=== PATIENT | male | born 1950 | race Caucasian/White ===

== ENCOUNTER → 2019-11-07 | Outpatient (CLI) | payer MEDICARE ==
[~2019-11-07] MED LIST: PLAVIX75 MG PO; SIMVASTATIN40 MG PO; ZYLOPRIM300 MG PO
--- NOTE | 2019-11-07 15:44 | Diagnostic Imaging Report ---
EXAMINATION: SP LUMBAR, COMPLETE MIN 4VW, HIP RIGHT 2-3 VW (+/- PELVIS) INDICATION: Back pain, right hip pain COMPARISON: None FINDINGS: Lumbar spine: AP, lateral and oblique images of the lumbar spine were obtained. No acute fracture. Vertebral body heights are maintained. Alignment is anatomic. Mild multilevel degenerative changes with disc space narrowing and osteophyte formation. Oblique images demonstrate no evidence of spondylolysis. Atherosclerotic arterial calcifications. Right hip: AP and frog-leg projections of the right hip were obtained. No acute fracture or dislocation. Alignment is anatomic. Mild right hip joint degenerative changes. Scattered atherosclerotic arterial calcifications. IMPRESSION: No acute osseous injury. 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 Signed by: Sonal Herman MD on 11/07/2019 3:40 PM
== END ==
LOC: RAD 13:39
DX: M25.551 Pain in right hip (principal); M54.5 Low back pain
CPT/HCPCS: 72110

== ENCOUNTER → 2020-07-10 | Day surgery (SDC) | payer MEDICARE ==
[2020-07-07 08:34] LABS: BASOPHILS # (AUTO) 0.1 (0.0-0.1); BASOPHILS % 0.9 % (0.0-1.0); EOSINOPHILS # (AUTO) 0.3 (0.0-0.4); EOSINOPHILS % 3.5 % (0.0-6.0); HEMATOCRIT 44.2 % (38.2-49.6); HEMOGLOBIN 14.5 g/dL (14.0-18.0); LYMPHOCYTES # (AUTO) 2.7 (1.0-3.2); MEAN CORPUSCULAR HEMOGLOBIN 29.8 pg (28-32); MEAN CORPUSCULAR HGB CONC 32.8 g/dL (31-35); MEAN CORPUSCULAR VOLUME 90.8 fL (81-99); MONOCYTES # (AUTO) 0.9 (0.2-0.8); MONOCYTES % 11.1 % (4.4-11.3); NEUTROPHILS # (AUTO) 3.8 (2.1-6.9); PLATELET COUNT 223 x10e3/uL (140-360); RED BLOOD COUNT 4.87 x10e6/uL (4.3-5.7); RED CELL DISTRIBUTION WIDTH 13.8 % (11.7-14.4)
[~2020-07-10] MED LIST changes: +FENTANYL CITRATE/PF 100MCG/2 ML INJ ONE; +GLUCAGON FOR INJ 1 MG VIAL ONE; +HYDROXYCHLOROQ200 MG PO; +HYOSCYAMINE SULFATE 0.5 MG/ML INJ ONE; +LIDOCAINE HCL 2% LOCAL INJ 5 ML SDV VIAL INJ ONE; +LOSARTAN POTASS25 MG PO; +MIDAZOLAM HCL 2 MG/2 ML VIAL ONE; +PROPOFOL IV EMULSION 10 MG/ML 20 ML VIAL ONE
[2020-07-10 16:30] VITALS: BP 126/82
== END | disposition home or self-care (01) ==
LOC: OR 12:01
PROVIDERS: ATTEND Internal Medicine Gastroenterology
DX: Z12.11 Encounter for screening for malignant neoplasm of colon (principal); D12.2 Benign neoplasm of ascending colon; D12.3 Benign neoplasm of transverse colon; D12.4 Benign neoplasm of descending colon; D12.5 Benign neoplasm of sigmoid colon; K64.8 Other hemorrhoids; I25.10 Atherosclerotic heart disease of native coronary artery without angina pectoris; I10 Essential (primary) hypertension; M10.9 Gout, unspecified; Z01.810 Encounter for preprocedural cardiovascular examination; Z01.812 Encounter for preprocedural laboratory examination; Z20.822 Contact with and (suspected) exposure to COVID-19; Z79.02 Long term (current) use of antithrombotics/antiplatelets
CPT/HCPCS: 36415; 45380; 45384; 45385; 85025; 93005; J1610; J1980; J2001; J2250; J2704; J3010; U0002; 45378

== ENCOUNTER → 2020-08-27 | Day surgery (SDC) | payer MEDICARE ==
[2020-08-24 13:11] LABS: BASOPHILS # (AUTO) 0.1 (0.0-0.1); BASOPHILS % 0.7 % (0.0-1.0); EOSINOPHILS # (AUTO) 0.2 (0.0-0.4); EOSINOPHILS % 2.9 % (0.0-6.0); HEMATOCRIT 44.3 % (38.2-49.6); HEMOGLOBIN 14.6 g/dL (14.0-18.0); LYMPHOCYTES # (AUTO) 2.6 (1.0-3.2); LYMPHOCYTES % 31.8 % (18.0-39.1); MEAN CORPUSCULAR HEMOGLOBIN 29.9 pg (28-32); MEAN CORPUSCULAR VOLUME 90.6 fL (81-99); MONOCYTES # (AUTO) 0.9 (0.2-0.8); MONOCYTES % 11.3 % (4.4-11.3); NEUTROPHILS # (AUTO) 4.3 (2.1-6.9); NEUTROPHILS % 52.8 % (38.7-80.0); PLATELET COUNT 230 x10e3/uL (140-360); RED BLOOD COUNT 4.89 x10e6/uL (4.3-5.7); RED CELL DISTRIBUTION WIDTH 14.5 % (11.7-14.4)
[~2020-08-27] MED LIST changes: -FENTANYL CITRATE/PF 100MCG/2 ML INJ ONE; -GLUCAGON FOR INJ 1 MG VIAL ONE; -HYOSCYAMINE SULFATE 0.5 MG/ML INJ ONE; -LIDOCAINE HCL 2% LOCAL INJ 5 ML SDV VIAL INJ ONE; -MIDAZOLAM HCL 2 MG/2 ML VIAL ONE
[2020-08-27 15:00] VITALS: BP 137/80
== END | disposition home or self-care (01) ==
LOC: OR 10:27
PROVIDERS: ATTEND Internal Medicine Gastroenterology
DX: Z12.11 Encounter for screening for malignant neoplasm of colon (principal); D12.3 Benign neoplasm of transverse colon; D12.2 Benign neoplasm of ascending colon; K62.1 Rectal polyp; K64.8 Other hemorrhoids; I25.10 Atherosclerotic heart disease of native coronary artery without angina pectoris; I10 Essential (primary) hypertension; M10.9 Gout, unspecified; Z01.812 Encounter for preprocedural laboratory examination; Z20.822 Contact with and (suspected) exposure to COVID-19; Z79.02 Long term (current) use of antithrombotics/antiplatelets
CPT/HCPCS: 36415; 45380; 45385; 85025; J2704; U0002; 45378; 45384

== ENCOUNTER 2021-07-03 09:39 | Inpatient (IN) | payer MEDICARE ==
[~2021-07-03] VITALS: Ht 175.3 cm; Wt 90.9 kg
[~2021-07-03 09:39] MED LIST changes: -PROPOFOL IV EMULSION 10 MG/ML 20 ML VIAL ONE
[2021-07-03 10:06] LABS: BASOPHILS # (AUTO) 0.1 (0.0-0.1); BASOPHILS % 0.9 % (0.0-1.0); EOSINOPHILS # (AUTO) 0.4 (0.0-0.4); EOSINOPHILS % 4.3 % (0.0-6.0); HEMATOCRIT 43.3 % (38.2-49.6); HEMOGLOBIN 13.9 g/dL (14.0-18.0); LYMPHOCYTES # (AUTO) 3.3 (1.0-3.2); LYMPHOCYTES % 37.6 % (18.0-39.1); MEAN CORPUSCULAR HEMOGLOBIN 30.2 pg (28-32); MEAN CORPUSCULAR HGB CONC 32.1 g/dL (31-35); MEAN CORPUSCULAR VOLUME 94.1 fL (81-99); MONOCYTES # (AUTO) 0.8 (0.2-0.8); MONOCYTES % 9.6 % (4.4-11.3); NEUTROPHILS # (AUTO) 4.1 (2.1-6.9); PLATELET COUNT 250 x10e3/uL (140-360); RED CELL DISTRIBUTION WIDTH 13.5 % (11.7-14.4)
[2021-07-03] MEDS ORDERED: ASPIRIN 81 MG CHEW TAB PO ONE (10:15)
[2021-07-03] MEDS: NITROGLYCERIN 0.4 MG SUBL SL PRN ×2 (10:21→10:27)
[2021-07-03 10:28] LABS: ALBUMIN 3.6 g/dL (3.5-5.0); ALBUMIN/GLOBULIN RATIO 1.1 (0.8-2.0); ANION GAP 12.8 mmol/L (8-16); CALCIUM 9.1 mg/dL (8.4-10.2); CREATININE, SERUM 1.63 mg/dL (0.72-1.25); POTASSIUM 3.8 mmol/L (3.5-5.1)
[2021-07-03] MEDS ORDERED: LACTATED RINGER'S 1,000 ML INJ ONE (11:30)
[2021-07-03] MEDS ORDERED: SODIUM CHLORIDE 0.9% 50ML 0 ML ONE (12:02)
[2021-07-03] MEDS ORDERED: IOPAMIDOL 370 MG/ML 200 ML INFUS..BTL INJ ONE ×2 (12:02→15:19)
[2021-07-03] MEDS ORDERED: ONDANSETRON HCL INJ 2MG/ML 2ML 2 MG/ML VIAL IV PRN (13:00)
[2021-07-03] MEDS ORDERED: Morphine 4mg Syringe 4 MG/ML INJ IV PRN (13:00)
[2021-07-03 14:45] VITALS: BP 118/79
[2021-07-03 15:00] VITALS: BP 118/79
[2021-07-03] MEDS ORDERED: SODIUM CHLORIDE 0.9% 50ML 50 ML ONE (15:19)
[2021-07-03 20:26] VITALS: BP 124/73
[2021-07-03] MEDS: HYDROXYCHLOROQUINE SULFATE 200 MG TAB PO SCH (21:47)
[2021-07-03] MEDS: ALLOPURINOL 300 MG TAB PO SCH (21:47)
[2021-07-03 21:52] VITALS: BP 124/73
[2021-07-03 23:47] VITALS: BP 137/71
[2021-07-04 05:30] VITALS: BP 148/64
[2021-07-04 07:01] LABS: BASOPHILS # (AUTO) 0.1 (0.0-0.1); BASOPHILS % 0.8 % (0.0-1.0); EOSINOPHILS # (AUTO) 0.3 (0.0-0.4); EOSINOPHILS % 3.7 % (0.0-6.0); HEMATOCRIT 42.5 % (38.2-49.6); HEMOGLOBIN 13.5 g/dL (14.0-18.0); LYMPHOCYTES # (AUTO) 2.2 (1.0-3.2); LYMPHOCYTES % 24.9 % (18.0-39.1); MEAN CORPUSCULAR HEMOGLOBIN 29.9 pg (28-32); MEAN CORPUSCULAR HGB CONC 31.8 g/dL (31-35); MONOCYTES % 11.3 % (4.4-11.3); NEUTROPHILS # (AUTO) 5.2 (2.1-6.9); NEUTROPHILS % 58.7 % (38.7-80.0); PLATELET COUNT 216 x10e3/uL (140-360); RED BLOOD COUNT 4.52 x10e6/uL (4.3-5.7); RED CELL DISTRIBUTION WIDTH 13.6 % (11.7-14.4)
[2021-07-04 07:22] LABS: ANION GAP 12.4 mmol/L (8-16); CALCIUM 9.2 mg/dL (8.4-10.2); CREATININE, SERUM 1.31 mg/dL (0.72-1.25); POTASSIUM 4.4 mmol/L (3.5-5.1)
[2021-07-04 07:43] LABS: INR 1.11; PROTHROMBIN TIME 15.1 seconds (11.9-14.5)
[2021-07-04 07:45] LABS: CREATINE KINASE MB 0.9 ng/mL (0-5.0)
[2021-07-04 07:48] VITALS: BP 134/79
[2021-07-04 07:55] VITALS: BP 134/79
[2021-07-04] MEDS: HYDROXYCHLOROQUINE SULFATE 200 MG TAB PO SCH ×2 (08:28→16:54)
[2021-07-04] MEDS: ALLOPURINOL 300 MG TAB PO SCH (08:29)
[2021-07-04 11:18] VITALS: BP 130/80
[2021-07-04 20:00] VITALS: BP 128/57
[2021-07-04 20:41] VITALS: BP 128/57
[2021-07-05] VITALS: BP 152/74
[2021-07-05 04:00] VITALS: BP 142/66
[2021-07-05 08:00] VITALS: BP 155/59
[2021-07-05] MEDS: ALLOPURINOL 300 MG TAB PO SCH (08:54)
[2021-07-05] MEDS: HYDROXYCHLOROQUINE SULFATE 200 MG TAB PO SCH (08:54)
[2021-07-05 11:45] VITALS: BP 157/77
[2021-07-05] MEDS ORDERED: ONDANSETRON HCL 4 MG ORAL DISINTEGRATING TAB PO PRN (12:30)
== END 2021-07-05 13:30 | disposition home or self-care (01) | DRG 182 ==
LOC: ER 09:54 → ERHOLD 12:59 → MED/SURG 14:36 → OBSVTOIN 07-05 10:09
DX: C34.11 Malignant neoplasm of upper lobe, right bronchus or lung (principal); R07.89 Other chest pain; I10 Essential (primary) hypertension; E78.5 Hyperlipidemia, unspecified; Z20.822 Contact with and (suspected) exposure to COVID-19
CPT/HCPCS: 36415; 71045; 71260; 76705; 80048; 80053; 82550; 82553; 83690; 84484; 85025; 85379; 85610; 93005; 93306; 99284; G0378; J2270; J2405; J7121; Q9967; U0002

== ENCOUNTER → 2021-07-07 | Outpatient (CLI) | payer MEDICARE ==
[~2021-07-07] MED LIST changes: +FENTANYL CITRATE/PF 100MCG/2 ML INJ ONE; +LIDOCAINE HCL 1% LOCAL INJ 20 ML VIAL ONE; +MIDAZOLAM HCL 2 MG/2 ML VIAL ONE
== END ==
LOC: CT 07:56
DX: R91.8 Other nonspecific abnormal finding of lung field (principal); Z20.822 Contact with and (suspected) exposure to COVID-19
CPT/HCPCS: 32408; 71045; 77012; 88305; J2001; J2250; J3010; U0002; 88300

== ENCOUNTER → 2021-08-02 | Outpatient (CLI) | payer MEDICARE ==
[2021-07-30 10:56] LABS: INR 1.01; PARTIAL THROMBOPLASTIN TIME 31.6 seconds (23.8-35.5); PROTHROMBIN TIME 14.2 seconds (11.9-14.5)
[2021-07-30 10:59] LABS: CREATININE, SERUM 1.46 mg/dL (0.72-1.25)
[~2021-08-02] MED LIST changes: +HYDRALAZINE HCL 20 MG/ML VIAL ONE; +SODIUM CHLORIDE 0.9% 500ML 500 ML ONE
== END ==
LOC: CT 08:08
DX: R91.8 Other nonspecific abnormal finding of lung field (principal); Z20.822 Contact with and (suspected) exposure to COVID-19
CPT/HCPCS: 10009; 32408; 36415; 71045; 82565; 84520; 85610; 85730; 88112; 88305; 88342; 93005; J0360; J2001; J2250; J3010; J7040; U0002; 99152

== ENCOUNTER → 2021-08-30 | Outpatient (CLI) | payer MEDICARE ==
[~2021-08-30] MED LIST changes: -FENTANYL CITRATE/PF 100MCG/2 ML INJ ONE; +GADOBENATE DIMEGLUMINE 1 ML IV ONE; -HYDRALAZINE HCL 20 MG/ML VIAL ONE; -LIDOCAINE HCL 1% LOCAL INJ 20 ML VIAL ONE; -MIDAZOLAM HCL 2 MG/2 ML VIAL ONE; -SODIUM CHLORIDE 0.9% 500ML 500 ML ONE
[2021-08-30 10:20] LABS: CREATININE, SERUM 1.48 mg/dL (0.72-1.25)
== END ==
LOC: MRI 09:32
PROVIDERS: ATTEND Internal Medicine Hematology & Oncology
DX: C34.11 Malignant neoplasm of upper lobe, right bronchus or lung (principal); I73.9 Peripheral vascular disease, unspecified; I10 Essential (primary) hypertension
CPT/HCPCS: 36415; 70553; 82565; 84520; A9577

== ENCOUNTER 2021-10-04 21:22 | Emergency (ER) | payer MEDICARE, OTHER ==
[~2021-10-04] VITALS: Ht 175.3 cm; Wt 90.7 kg
[~2021-10-04 21:22] MED LIST changes: -GADOBENATE DIMEGLUMINE 1 ML IV ONE
== END 2021-10-04 22:58 | disposition home or self-care (01) ==
LOC: ER 21:49
DX: M25.552 Pain in left hip (principal); W18.39XA Other fall on same level, initial encounter; Y92.89 Other specified places as the place of occurrence of the external cause; I10 Essential (primary) hypertension; E78.5 Hyperlipidemia, unspecified; M10.9 Gout, unspecified; Z85.118 Personal history of other malignant neoplasm of bronchus and lung
CPT/HCPCS: 99283

== ENCOUNTER 2021-10-07 12:59 | Inpatient (IN) | payer MEDICARE ==
[~2021-10-07] VITALS: Ht 175.3 cm; Wt 90.7 kg
[2021-10-07] MEDS: SODIUM CHLORIDE 0.9% 1000ML 1,000 ML IV STA ×2 (13:14→17:49)
[2021-10-07] MEDS ORDERED: ONDANSETRON HCL INJ 2MG/ML 2ML 2 MG/ML VIAL IV STA (13:14)
[2021-10-07 13:47] LABS: BASOPHILS % 0.2 % (0.0-1.0); HEMOGLOBIN 9.7 g/dL (14.0-18.0); LYMPHOCYTES # (AUTO) 0.4 (1.0-3.2); LYMPHOCYTES % 8.8 % (18.0-39.1); MEAN CORPUSCULAR HGB CONC 33.4 g/dL (31-35); MEAN CORPUSCULAR VOLUME 89.8 fL (81-99); MONOCYTES # (AUTO) 0.5 (0.2-0.8); MONOCYTES % 11.5 % (4.4-11.3); NEUTROPHILS # (AUTO) 3.6 (2.1-6.9); NEUTROPHILS % 79.1 % (38.7-80.0); PLATELET COUNT 203 x10e3/uL (140-360); RED BLOOD COUNT 3.23 x10e6/uL (4.3-5.7)
[2021-10-07 13:52] LABS: INR 1.12; PROTHROMBIN TIME 15.4 seconds (11.9-14.5)
[2021-10-07 13:53] LABS: PARTIAL THROMBOPLASTIN TIME 32.5 seconds (23.8-35.5)
[2021-10-07 14:01] LABS: ALBUMIN 3.2 g/dL (3.5-5.0); ALBUMIN/GLOBULIN RATIO 0.8 (0.8-2.0); ANION GAP 22.5 mmol/L (8-16); CALCIUM 8.7 mg/dL (8.4-10.2); CREATININE, SERUM 6.16 mg/dL (0.72-1.25); POTASSIUM 4.5 mmol/L (3.5-5.1)
[2021-10-07] MEDS ORDERED: SODIUM CHLORIDE 0.9% 1000ML 1,000 ML IV STA (14:35)
[2021-10-07] MEDS ORDERED: SODIUM CHLORIDE 0.9% 1000ML 1,000 ML IV SCH (14:45)
[2021-10-07 15:47] VITALS: BP 147/79
[2021-10-07] MEDS ORDERED: ALEVE220 M1 PO (15:55)
[2021-10-07] MEDS ORDERED: MORPHINE SULFAT30 M2 PO (15:55)
[2021-10-07] MEDS ORDERED: ACYCLOVIR800 MG PO (15:55)
[2021-10-07] MEDS ORDERED: ONDANSETRON ODT8 MG PO (15:55)
[2021-10-07 16:42] VITALS: BP 147/79
[2021-10-07] MEDS: LACTATED RINGER'S 1,000 ML INJ SCH (18:00)
[2021-10-07] MEDS: HYDROXYCHLOROQUINE SULFATE 200 MG TAB PO SCH (18:00)
[2021-10-07] MEDS: ONDANSETRON HCL 4 MG ORAL DISINTEGRATING TAB PO SCH ×2 (18:00→23:55)
[2021-10-07] MEDS: ACYCLOVIR 200 MG CAP PO SCH ×2 (18:05→23:55)
[2021-10-07 20:00] VITALS: BP 120/67
[2021-10-07] MEDS: MORPHINE SULFATE 30 MG TAB ER PO SCH (20:55)
[2021-10-07] MEDS: SIMVASTATIN 40 MG TAB PO SCH (20:55)
[2021-10-07 22:33] LABS: CLARITY,URINE CLEAR (CLEAR); COLOR,URINE YELLOW (YELLOW); KETONES,URINE NEGATIVE (NEGATIVE); LEUKOCYTE ESTERASE ,URINE NEGATIVE (NEGATIVE); NITRITE,URINE NEGATIVE (NEGATIVE); PROTEIN,URINE DIPSTICK 1+ (NEGATIVE); URINE UROBILINOGEN 0.2 mg/dL (0.2 - 1)
[2021-10-07 22:35] LABS: BACTERIA,URINE FEW /HPF; EPITHELIAL CELLS,URINE FEW /LPF; RBC,URINE 0-5 /HPF (0-5)
[2021-10-08] VITALS (7 sets, daily range): BP systolic 118–146; BP diastolic 59–88
[2021-10-08] MEDS: LACTATED RINGER'S 1,000 ML INJ SCH ×2 (04:10→20:41)
[2021-10-08] MEDS: ACYCLOVIR 200 MG CAP PO SCH ×3 (05:12→17:09)
[2021-10-08] MEDS: ONDANSETRON HCL 4 MG ORAL DISINTEGRATING TAB PO SCH ×3 (05:12→17:09)
[2021-10-08 05:27] LABS: BASOPHILS % 0.5 % (0.0-1.0); EOSINOPHILS % 0.3 % (0.0-6.0); HEMATOCRIT 26.2 % (38.2-49.6); HEMOGLOBIN 8.5 g/dL (14.0-18.0); LYMPHOCYTES # (AUTO) 0.9 (1.0-3.2); LYMPHOCYTES % 24.2 % (18.0-39.1); MEAN CORPUSCULAR HEMOGLOBIN 29.9 pg (28-32); MEAN CORPUSCULAR HGB CONC 32.4 g/dL (31-35); MEAN CORPUSCULAR VOLUME 92.3 fL (81-99); MONOCYTES # (AUTO) 0.5 (0.2-0.8); MONOCYTES % 13.3 % (4.4-11.3); NEUTROPHILS # (AUTO) 2.3 (2.1-6.9); NEUTROPHILS % 60.9 % (38.7-80.0); PLATELET COUNT 183 x10e3/uL (140-360); RED BLOOD COUNT 2.84 x10e6/uL (4.3-5.7); RED CELL DISTRIBUTION WIDTH 14.3 % (11.7-14.4)
[2021-10-08 06:00] LABS: ANION GAP 14.3 mmol/L (8-16); CALCIUM 8.1 mg/dL (8.4-10.2); CREATININE, SERUM 5.63 mg/dL (0.72-1.25); POTASSIUM 4.3 mmol/L (3.5-5.1)
[2021-10-08] MEDS: ALLOPURINOL 300 MG TAB PO SCH (08:21)
[2021-10-08] MEDS: LOSARTAN POTASSIUM 100 MG TAB PO SCH (08:21)
[2021-10-08] MEDS: HYDROXYCHLOROQUINE SULFATE 200 MG TAB PO SCH ×2 (08:21→17:09)
[2021-10-08] MEDS: MORPHINE SULFATE 30 MG TAB ER PO SCH ×2 (08:25→20:42)
[2021-10-08] MEDS ORDERED: MAGNESIUM SULFATE 2GM/50ML 50 ML IV ONE (16:30)
[2021-10-08] MEDS: SIMVASTATIN 40 MG TAB PO SCH (20:42)
[2021-10-09] VITALS (8 sets, daily range): BP systolic 125–151; BP diastolic 67–92
[2021-10-09] MEDS: ONDANSETRON HCL 4 MG ORAL DISINTEGRATING TAB PO SCH ×4 (00:42→18:27)
[2021-10-09] MEDS: ACYCLOVIR 200 MG CAP PO SCH ×4 (00:42→18:27)
[2021-10-09] MEDS: LACTATED RINGER'S 1,000 ML INJ SCH (05:29)
[2021-10-09 06:32] LABS: CALCIUM 8.5 mg/dL (8.4-10.2); CREATININE, SERUM 5.67 mg/dL (0.72-1.25)
[2021-10-09] MEDS: HYDROXYCHLOROQUINE SULFATE 200 MG TAB PO SCH ×2 (09:03→18:27)
[2021-10-09] MEDS: ALLOPURINOL 300 MG TAB PO SCH (09:03)
[2021-10-09] MEDS: LOSARTAN POTASSIUM 100 MG TAB PO SCH (09:03)
[2021-10-09] MEDS: MORPHINE SULFATE 30 MG TAB ER PO SCH (09:03)
[2021-10-09] MEDS: SENNOSIDES 8.6 MG TAB PO SCH (11:15)
[2021-10-09 16:49] LABS: BASOPHILS % 0.4 % (0.0-1.0); EOSINOPHILS % 0.7 % (0.0-6.0); HEMATOCRIT 28.5 % (38.2-49.6); HEMOGLOBIN 8.8 g/dL (14.0-18.0); LYMPHOCYTES # (AUTO) 0.9 (1.0-3.2); LYMPHOCYTES % 20.8 % (18.0-39.1); MEAN CORPUSCULAR HEMOGLOBIN 29.9 pg (28-32); MEAN CORPUSCULAR HGB CONC 30.9 g/dL (31-35); MEAN CORPUSCULAR VOLUME 96.9 fL (81-99); MONOCYTES # (AUTO) 0.8 (0.2-0.8); MONOCYTES % 16.6 % (4.4-11.3); NEUTROPHILS # (AUTO) 2.8 (2.1-6.9); NEUTROPHILS % 61.1 % (38.7-80.0); PLATELET COUNT 197 x10e3/uL (140-360); RED BLOOD COUNT 2.94 x10e6/uL (4.3-5.7); RED CELL DISTRIBUTION WIDTH 14.8 % (11.7-14.4)
[2021-10-09] MEDS: SIMVASTATIN 40 MG TAB PO SCH (20:51)
[2021-10-09] MEDS ORDERED: MORPHINE SULFATE 30 MG TAB ER PO SCH (21:00)
[2021-10-09 21:23] LABS: TOTAL PROTEIN 24HR, URINE 661.5 mg/24hr (50-100); TOTAL PROTEIN, URINE 31.5 mg/dL (1-14)
[2021-10-10] VITALS (8 sets, daily range): BP systolic 127–156; BP diastolic 78–88
[2021-10-10] MEDS: ACYCLOVIR 200 MG CAP PO SCH ×5 (00:53→23:30)
[2021-10-10] MEDS: ONDANSETRON HCL 4 MG ORAL DISINTEGRATING TAB PO SCH ×4 (06:00→17:14)
[2021-10-10 06:11] LABS: BASOPHILS % 0.7 % (0.0-1.0); EOSINOPHILS % 0.4 % (0.0-6.0); HEMATOCRIT 29.5 % (38.2-49.6); HEMOGLOBIN 9.4 g/dL (14.0-18.0); LYMPHOCYTES # (AUTO) 0.7 (1.0-3.2); LYMPHOCYTES % 15.3 % (18.0-39.1); MEAN CORPUSCULAR HEMOGLOBIN 29.7 pg (28-32); MEAN CORPUSCULAR HGB CONC 31.9 g/dL (31-35); MEAN CORPUSCULAR VOLUME 93.4 fL (81-99); MONOCYTES # (AUTO) 0.6 (0.2-0.8); MONOCYTES % 13.8 % (4.4-11.3); NEUTROPHILS # (AUTO) 3.2 (2.1-6.9); NEUTROPHILS % 68.9 % (38.7-80.0); PLATELET COUNT 201 x10e3/uL (140-360); RED BLOOD COUNT 3.16 x10e6/uL (4.3-5.7)
[2021-10-10 06:49] LABS: ALBUMIN 2.8 g/dL (3.5-5.0); ALBUMIN/GLOBULIN RATIO 0.9 (0.8-2.0); CREATININE, SERUM 5.41 mg/dL (0.72-1.25); MAGNESIUM 1.8 MG/DL (1.3-2.1)
[2021-10-10] MEDS ORDERED: ACETAMINOPHEN 325 MG TAB PO PRN (08:45)
[2021-10-10] MEDS: DOCUSATE SODIUM 100 MG CAP PO SCH (09:20)
[2021-10-10] MEDS: ALLOPURINOL 300 MG TAB PO SCH (09:20)
[2021-10-10] MEDS: LOSARTAN POTASSIUM 100 MG TAB PO SCH (09:20)
[2021-10-10] MEDS: HYDROXYCHLOROQUINE SULFATE 200 MG TAB PO SCH ×2 (09:20→16:26)
[2021-10-10] MEDS: SENNOSIDES 8.6 MG TAB PO SCH (09:20)
[2021-10-10 16:53] LABS: ANION GAP 16.4 mmol/L (8-16); CALCIUM 8.8 mg/dL (8.4-10.2); CREATININE, SERUM 5.53 mg/dL (0.72-1.25); POTASSIUM 5.4 mmol/L (3.5-5.1)
[2021-10-10] MEDS: QUETIAPINE FUMARATE 25 MG TAB PO SCH (20:37)
[2021-10-10] MEDS: SIMVASTATIN 40 MG TAB PO SCH (20:37)
[2021-10-11] VITALS (8 sets, daily range): BP systolic 116–140; BP diastolic 75–86
[2021-10-11] MEDS: DOCUSATE SODIUM 100 MG CAP PO SCH (08:59)
[2021-10-11] MEDS: HYDROXYCHLOROQUINE SULFATE 200 MG TAB PO SCH ×2 (08:59→16:32)
[2021-10-11] MEDS: LOSARTAN POTASSIUM 100 MG TAB PO SCH (08:59)
[2021-10-11] MEDS: ALLOPURINOL 300 MG TAB PO SCH (09:00)
[2021-10-11] MEDS: SENNOSIDES 8.6 MG TAB PO SCH (09:00)
[2021-10-11] MEDS: ACYCLOVIR 200 MG CAP PO SCH ×4 (09:06→23:53)
[2021-10-11] MEDS: QUETIAPINE FUMARATE 25 MG TAB PO SCH (20:08)
[2021-10-11] MEDS: SIMVASTATIN 40 MG TAB PO SCH (20:08)
[2021-10-12] VITALS (7 sets, daily range): BP systolic 121–137; BP diastolic 75–86
[2021-10-12] MEDS: ACYCLOVIR 200 MG CAP PO SCH ×3 (05:33→17:33)
[2021-10-12 05:44] LABS: BASOPHILS % 0.4 % (0.0-1.0); EOSINOPHILS # (AUTO) 0.1 (0.0-0.4); EOSINOPHILS % 1.5 % (0.0-6.0); HEMATOCRIT 28.8 % (38.2-49.6); HEMOGLOBIN 9.5 g/dL (14.0-18.0); LYMPHOCYTES % 22.4 % (18.0-39.1); MEAN CORPUSCULAR HEMOGLOBIN 30.3 pg (28-32); MEAN CORPUSCULAR VOLUME 91.7 fL (81-99); MONOCYTES # (AUTO) 0.6 (0.2-0.8); MONOCYTES % 13.8 % (4.4-11.3); NEUTROPHILS # (AUTO) 2.8 (2.1-6.9); NEUTROPHILS % 60.4 % (38.7-80.0); PLATELET COUNT 215 x10e3/uL (140-360); RED BLOOD COUNT 3.14 x10e6/uL (4.3-5.7); RED CELL DISTRIBUTION WIDTH 14.1 % (11.7-14.4)
[2021-10-12 06:07] LABS: CALCIUM 8.9 mg/dL (8.4-10.2); CREATININE, SERUM 4.93 mg/dL (0.72-1.25)
[2021-10-12] MEDS: DOCUSATE SODIUM 100 MG CAP PO SCH (08:32)
[2021-10-12] MEDS: LOSARTAN POTASSIUM 100 MG TAB PO SCH (08:33)
[2021-10-12] MEDS: ALLOPURINOL 300 MG TAB PO SCH (08:33)
[2021-10-12] MEDS: SENNOSIDES 8.6 MG TAB PO SCH (08:33)
[2021-10-12] MEDS: HYDROXYCHLOROQUINE SULFATE 200 MG TAB PO SCH ×2 (08:33→16:05)
[2021-10-12] MEDS: SODIUM CHLORIDE 0.9% 1000ML 1,000 ML IV SCH (16:25)
[2021-10-12] MEDS: SIMVASTATIN 40 MG TAB PO SCH (20:04)
[2021-10-12] MEDS: QUETIAPINE FUMARATE 25 MG TAB PO SCH (20:04)
[2021-10-13] VITALS (7 sets, daily range): BP systolic 113–131; BP diastolic 71–92
[2021-10-13] MEDS: ACYCLOVIR 200 MG CAP PO SCH ×4 (01:27→17:11)
[2021-10-13] MEDS: SODIUM CHLORIDE 0.9% 1000ML 1,000 ML IV SCH ×2 (04:07→17:30)
[2021-10-13 06:30] LABS: ANION GAP 11.5 mmol/L (8-16); CALCIUM 8.5 mg/dL (8.4-10.2); CREATININE, SERUM 4.35 mg/dL (0.72-1.25); POTASSIUM 4.5 mmol/L (3.5-5.1)
[2021-10-13] MEDS: SENNOSIDES 8.6 MG TAB PO SCH (09:23)
[2021-10-13] MEDS: HYDROXYCHLOROQUINE SULFATE 200 MG TAB PO SCH ×2 (09:23→17:11)
[2021-10-13] MEDS: ALLOPURINOL 300 MG TAB PO SCH (09:23)
[2021-10-13] MEDS: DOCUSATE SODIUM 100 MG CAP PO SCH (09:23)
[2021-10-13] MEDS: LOSARTAN POTASSIUM 100 MG TAB PO SCH (09:29)
[2021-10-13] MEDS: SIMVASTATIN 40 MG TAB PO SCH (20:25)
[2021-10-13] MEDS: QUETIAPINE FUMARATE 25 MG TAB PO SCH (20:25)
[2021-10-14 00:12] VITALS: BP 96/69
[2021-10-14] MEDS: ACYCLOVIR 200 MG CAP PO SCH ×3 (01:05→12:22)
[2021-10-14 02:29] VITALS: BP 96/69
[2021-10-14] MEDS: SODIUM CHLORIDE 0.9% 1000ML 1,000 ML IV SCH (03:30)
[2021-10-14 05:14] VITALS: BP 111/67
[2021-10-14 07:01] LABS: CALCIUM 8.4 mg/dL (8.4-10.2); CREATININE, SERUM 3.84 mg/dL (0.72-1.25)
[2021-10-14 07:57] VITALS: BP 106/69
[2021-10-14] MEDS: HYDROXYCHLOROQUINE SULFATE 200 MG TAB PO SCH (08:58)
[2021-10-14] MEDS: SENNOSIDES 8.6 MG TAB PO SCH (08:58)
[2021-10-14] MEDS: ALLOPURINOL 300 MG TAB PO SCH (08:58)
[2021-10-14] MEDS: DOCUSATE SODIUM 100 MG CAP PO SCH (08:58)
[2021-10-14 11:50] VITALS: BP 129/68
[2021-10-14] MEDS: LOSARTAN POTASSIUM 100 MG TAB PO SCH (12:25)
[2021-10-15] MEDS ORDERED: PANTOPRAZOLE SOD 40 MG TABEC PO SCH (07:30)
== END 2021-10-14 14:15 | disposition home or self-care (01) | DRG 682 ==
LOC: ER 13:20 → ERHOLD 14:44 → MED/SURG3 15:18
DX: N17.9 Acute kidney failure, unspecified (principal); G93.41 Metabolic encephalopathy; C78.00 Secondary malignant neoplasm of unspecified lung; C34.11 Malignant neoplasm of upper lobe, right bronchus or lung; C79.70 Secondary malignant neoplasm of unspecified adrenal gland; E44.0 Moderate protein-calorie malnutrition; I10 Essential (primary) hypertension; M10.9 Gout, unspecified; Z96.659 Presence of unspecified artificial knee joint; Z20.822 Contact with and (suspected) exposure to COVID-19; I49.3 Ventricular premature depolarization; I12.9 Hypertensive chronic kidney disease with stage 1 through stage 4 chronic kidney disease, or unspecified chronic kidney disease; N18.9 Chronic kidney disease, unspecified; D63.8 Anemia in other chronic diseases classified elsewhere; G89.29 Other chronic pain; Z79.899 Other long term (current) drug therapy; Z68.29 Body mass index [BMI] 29.0-29.9, adult
CPT/HCPCS: 36415; 70450; 70551; 71045; 76770; 80048; 80053; 81001; 81050; 82140; 82550; 82553; 83735; 83880; 84156; 84443; 84484; 85025; 85610; 85730; 86021; 86039; 86160; 86225; 96361; 97139; 99251; 99284; J2405; J3475; J7030; J7121; Q0162; U0002

== ENCOUNTER 2021-10-14 19:12 | Emergency (ER) | payer MEDICARE, OTHER ==
[~2021-10-14] VITALS: Ht 175.3 cm; Wt 90.7 kg
[~2021-10-14 19:12] MED LIST changes: +ACYCLOVIR800 MG PO; +ALEVE220 M1 PO; +MORPHINE SULFAT30 M2 PO; +ONDANSETRON ODT8 MG PO
[2021-10-14 20:05] LABS: BASOPHILS % 0.5 % (0.0-1.0); EOSINOPHILS # (AUTO) 0.1 (0.0-0.4); EOSINOPHILS % 1.4 % (0.0-6.0); HEMATOCRIT 27.5 % (38.2-49.6); LYMPHOCYTES # (AUTO) 0.8 (1.0-3.2); LYMPHOCYTES % 13.4 % (18.0-39.1); MEAN CORPUSCULAR HEMOGLOBIN 30.1 pg (28-32); MEAN CORPUSCULAR HGB CONC 32.7 g/dL (31-35); MONOCYTES # (AUTO) 0.7 (0.2-0.8); NEUTROPHILS # (AUTO) 4.1 (2.1-6.9); NEUTROPHILS % 71.2 % (38.7-80.0); PLATELET COUNT 199 x10e3/uL (140-360); RED BLOOD COUNT 2.99 x10e6/uL (4.3-5.7); RED CELL DISTRIBUTION WIDTH 14.6 % (11.7-14.4)
[2021-10-14 20:24] LABS: ALBUMIN 2.6 g/dL (3.5-5.0); ALBUMIN/GLOBULIN RATIO 0.8 (0.8-2.0); ANION GAP 13.9 mmol/L (8-16); CALCIUM 7.7 mg/dL (8.4-10.2); CREATININE, SERUM 3.39 mg/dL (0.72-1.25); POTASSIUM 3.9 mmol/L (3.5-5.1)
[2021-10-14 20:31] LABS: CREATINE KINASE MB 1.9 ng/mL (0-5.0)
[2021-10-14 23:40] LABS: CLARITY,URINE CLEAR (CLEAR); COLOR,URINE YELLOW (YELLOW); KETONES,URINE NEGATIVE (NEGATIVE); LEUKOCYTE ESTERASE ,URINE NEGATIVE (NEGATIVE); NITRITE,URINE NEGATIVE (NEGATIVE); PROTEIN,URINE DIPSTICK 1+ (NEGATIVE); URINE UROBILINOGEN 0.2 mg/dL (0.2 - 1)
[2021-10-14 23:44] LABS: BACTERIA,URINE FEW /HPF; EPITHELIAL CELLS,URINE FEW /LPF; WBC,URINE (MAN) 0-5 /HPF (0-5)
[2021-10-15 01:46] VITALS: BP 134/93
== END 2021-10-14 23:48 | disposition home or self-care (01) ==
LOC: ER 19:18
DX: S00.81XA Abrasion of other part of head, initial encounter (principal); S51.011A Laceration without foreign body of right elbow, initial encounter; W01.198A Fall on same level from slipping, tripping and stumbling with subsequent striking against other object, initial encounter; Y92.098 Other place in other non-institutional residence as the place of occurrence of the external cause; I10 Essential (primary) hypertension; E78.5 Hyperlipidemia, unspecified; R94.31 Abnormal electrocardiogram [ECG] [EKG]; Z85.118 Personal history of other malignant neoplasm of bronchus and lung; Z96.652 Presence of left artificial knee joint
CPT/HCPCS: 36415; 70450; 71045; 72125; 72170; 80053; 81001; 82550; 82553; 84484; 85025; 93005

== ENCOUNTER 2021-10-15 19:51 | Emergency (ER) | payer MEDICARE ==
[~2021-10-15] VITALS: Ht 175.3 cm; Wt 90.7 kg
== END 2021-10-15 23:00 | disposition expired ==
LOC: ER 20:04
DX: I46.9 Cardiac arrest, cause unspecified (principal); I10 Essential (primary) hypertension; E78.5 Hyperlipidemia, unspecified; M10.9 Gout, unspecified; Z85.118 Personal history of other malignant neoplasm of bronchus and lung; Z96.652 Presence of left artificial knee joint
CPT/HCPCS: 92950; 94799